=== PATIENT | male | born 1965 | race Caucasian/White ===

== ENCOUNTER 2017-06-05 08:50 | Day surgery (SDC) | payer OTHER, SELFPAY ==
[~2017-06-05] VITALS: Ht 175.3 cm; Wt 95.7 kg
[~2017-06-05 08:50] MED LIST: CITA40TA6 PO; DOXE100C4 PO; FAMO40TA7 PO; METO-391 PO; METO-409 PO; SODIUM CHLORIDE 0.9% 1000ML 1,000 ML IV ONE
[2017-06-05 09:45] VITALS: BP 135/74
[2017-06-05] MEDS ORDERED: PROPOFOL 10 MG/ML 20ML VIAL IV ONE ×3 (11:06→11:30)
[2017-06-05] MEDS ORDERED: FENTANYL CITRATE PF 50 MCG/1 ML 2ML VIAL ONE (11:16)
== END 2017-06-05 12:15 | disposition home or self-care (01) ==
LOC: DAH 08:50
PROVIDERS: ATTEND Internal Medicine Gastroenterology
DX: K92.1 Melena (principal); K57.30 Diverticulosis of large intestine without perforation or abscess without bleeding; K63.5 Polyp of colon; I10 Essential (primary) hypertension; F32.9 Major depressive disorder, single episode, unspecified
CPT/HCPCS: 45380; 88305; A4606; J2704 ×3; J3010; J7030